=== PATIENT | male | born 1970 | race Caucasian/White ===

== ENCOUNTER 2021-03-25 21:37 | Inpatient (IN) | payer OTHER ==
[~2021-03-25] VITALS: Ht 180.3 cm; Wt 104.2 kg
[2021-03-25] MEDS ORDERED: ONDANSETRON 2MG/ML, 2ML IVPush ONE (22:00)
[2021-03-25] MEDS ORDERED: SODIUM CHLORIDE FLUSH 10ML SYR IVF ONE (22:00)
[2021-03-25 22:05] LABS: BASOPHILS % (AUTO) 1 % (0-1); EOSINOPHILS % (AUTO) 1 % (1-7); LYMPHOCYTES % (AUTO) 20 % (22-44); MEAN CORPUSCULAR HEMOGLOBIN 32.5 pg (27.5-34.5); MEAN CORPUSCULAR HGB CONC 34.3 g/dL (33.2-36.2); MEAN PLATELET VOLUME 9.4 fL (7.4-10.4); MONOCYTES % (AUTO) 13 % (2-9); NEUTROPHILS % (AUTO) 66 % (42-75); PLATELET COUNT 193 x10^3/uL (130-400); RED BLOOD COUNT 3.57 x10^6/uL (4.38-5.82)
--- NOTE | 2021-03-25 22:06 | NUR ---
[facility] FROM HOME. PT HAD RIGHT TOTAL KNEE REPLACEMENT ON SUNDAY AND IS NOW HAVING UNCONTROLLED PAIN, SWELLING, REDNESS, AND FEELING LIGHTHEADED, WEAK AND NAUSEOUS FOR 2 DAYS. TEMP AT HOME WAS 100.9. PT STATES HE CANNOT MOVE RIGHT LEG AND HAS NOT BEEN ABLE TO WEIGHT ON IT. AT BEDSIDE.
[2021-03-25 22:08] LABS: MD NO
[2021-03-25 22:09] LABS: HCT (SEDRATE) 33.9 % (39.2-51.8)
--- NOTE | 2021-03-25 22:10 | NUR ---
PT HAS RON WOUND VAC TO RIGHT FORTE.
[2021-03-25 22:14] LABS: ALANINE AMINOTRANSFERASE 22 U/L (12-78); ALBUMIN 3.2 g/dL (3.4-5.0); ANION GAP 6 mmol/L (5-15); CHLORIDE 103 mmol/L (98-107); CREATININE 1.25 mg/dL (0.7-1.3)
[2021-03-25] MEDS ORDERED: MORPHINE SULFATE 4 MG/ML, 1ML ONE (22:15)
[2021-03-25] MEDS ORDERED: ONDANSETRON 2MG/ML, 2ML ONE (22:15)
[2021-03-25] MEDS: MORPHINE SULFATE 4 MG/ML, 1ML IVPush PRN (22:17)
[2021-03-25 22:21] LABS: ALKALINE PHOSPHATASE 67 U/L (45-117); BILIRUBIN,TOTAL 0.6 mg/dL (0.2-1.0); TOTAL PROTEIN 6.2 g/dL (6.4-8.2)
[2021-03-25 22:25] LABS: MICROSCOPIC NOT IND
[2021-03-25] MEDS ORDERED: VANCOMYCIN PER PHARMACY MC PRN (23:00)
[2021-03-25] MEDS ORDERED: AMPICILLIN/SULBACTAM 3 GM in SODIUM CHLORIDE 0.9% 100 ML IV ONE (23:00)
[2021-03-25] MEDS ORDERED: RIVA10TA2 PO (23:26)
[2021-03-25] MEDS ORDERED: TRAM-47 PO (23:26)
[2021-03-25] MEDS ORDERED: OXYC5CAP2 PO (23:26)
[2021-03-25] MEDS ORDERED: ALLO300T PO (23:26)
--- NOTE | 2021-03-25 23:34 | NUR ---
[facility] AT BEDSIDE
[2021-03-26] MEDS ORDERED: ACETAMINOPHEN 325 MG TABLET PO PRN
[2021-03-26] MEDS ORDERED: PROMETHAZINE 25 MG/ML, 1ML IM PRN
[2021-03-26] MEDS ORDERED: CEFTRIAXONE 2 GM in DEXTROSE 5% 50 ML IVPB SCH
[2021-03-26] MEDS ORDERED: hydrALAzine 20 MG/ML, 1ML IVPush PRN
[2021-03-26] MEDS ORDERED: morphine SULFATE 10 MG/ML, 1ML IVPush PRN
[2021-03-26] MEDS ORDERED: BISACODYL 10 MG SUPP PR PRN
[2021-03-26] MEDS ORDERED: ONDANSETRON ODT 4 MG PO PRN
[2021-03-26] MEDS ORDERED: POLYETHYLENE GLYCOL 17 GM PACKET PO PRN
[2021-03-26] MEDS ORDERED: ONDANSETRON 2MG/ML, 2ML IVPush PRN
[2021-03-26] MEDS ORDERED: VANCOMYCIN 2,500 MG in SODIUM CHLORIDE 0.9% 500 ML IV ONE
--- NOTE | 2021-03-26 00:28 | NUR ---
REPORT GIVEN TO PAOLA WATKINS
[2021-03-26] MEDS ORDERED: MORPHINE SULFATE 4 MG/ML, 1ML ONE (00:29)
[2021-03-26] MEDS ORDERED: ZOLPIDEM 10MG TABLET PO PRN (00:30)
[2021-03-26] MEDS ORDERED: PHARMACOKINETIC MONITORING MC PRN (00:30)
[2021-03-26] MEDS: MORPHINE SULFATE 4 MG/ML, 1ML IVPush PRN (00:31)
[2021-03-26 01:00] VITALS: BP 121/63
[2021-03-26] MEDS: OXYcodone IR 5MG TABLET PO PRN ×4 (01:28→21:15)
[2021-03-26] MEDS: SODIUM CHLORIDE 0.9% 1,000 ML IV SCH ×2 (01:45→10:00)
[2021-03-26 05:07] LABS: BASOPHILS % (AUTO) 1 % (0-1); EOSINOPHILS % (AUTO) 1 % (1-7); LYMPHOCYTES % (AUTO) 24 % (22-44); MEAN CORPUSCULAR HEMOGLOBIN 32.5 pg (27.5-34.5); MEAN CORPUSCULAR HGB CONC 34.2 g/dL (33.2-36.2); MEAN PLATELET VOLUME 9.2 fL (7.4-10.4); MONOCYTES % (AUTO) 12 % (2-9); NEUTROPHILS % (AUTO) 63 % (42-75); PLATELET COUNT 195 x10^3/uL (130-400); RED BLOOD COUNT 3.36 x10^6/uL (4.38-5.82)
[2021-03-26 05:11] LABS: CHLORIDE 106 mmol/L (98-107)
[2021-03-26 05:14] LABS: MD NO
[2021-03-26 05:22] LABS: ALANINE AMINOTRANSFERASE 18 U/L (12-78); ALBUMIN 2.9 g/dL (3.4-5.0); ALKALINE PHOSPHATASE 63 U/L (45-117); ANION GAP 3 mmol/L (5-15); BILIRUBIN,TOTAL 0.7 mg/dL (0.2-1.0); CALCIUM 7.8 mg/dL (8.5-10.1); CHOL/HDL RATIO 3.6; CHOLESTEROL, TOTAL 118 mg/dL (140-239); CREATININE 1.12 mg/dL (0.7-1.3); HDL CHOL % 28 % (26-37); HDL CHOLESTEROL (DIRECT) 33 mg/dL (40-60); LDL CHOLESTEROL,CALCULATED 54 mg/dL (54-169); LDL/HDL RATIO 1.6 (0.5-3.0); TOTAL PROTEIN 5.7 g/dL (6.4-8.2); TRIGLYCERIDES 155 mg/dL (50-200); VLDL CHOLESTEROL 31 mg/dL (0-25)
[2021-03-26 06:24] VITALS: BP 111/68
[2021-03-26] MEDS: KETOROLAC 30 MG/1 ML IVPush SCH ×3 (08:13→18:43)
[2021-03-26] MEDS: RIVAROXABAN 10 MG TABLET PO SCH (08:13)
[2021-03-26] MEDS: SENNA/DOCUSATE TABLET PO SCH (08:13)
[2021-03-26] MEDS: ALLOPURINOL 300 MG TABLET PO SCH (08:14)
[2021-03-26] MEDS ORDERED: VANCOMYCIN PER PHARMACY MC PRN ×2 (11:00)
[2021-03-26] MEDS ORDERED: OXYcodone IR 5MG TABLET PO PRN (11:00)
[2021-03-26] MEDS: AMPICILLIN/SULBACTAM 3 GM in SODIUM CHLORIDE 0.9% 100 ML IV SCH ×3 (12:30→23:29)
[2021-03-26] MEDS: VANCOMYCIN 1,700 MG in SODIUM CHLORIDE 0.9% 250 ML IV SCH (14:00)
[2021-03-26] MEDS ORDERED: METOCLOPRAMIDE 5 MG/ML, 2ML IVPush PRN (14:00)
[2021-03-26] MEDS ORDERED: VANCOMYCIN 2,000 MG in SODIUM CHLORIDE 0.9% 500 ML IV SCH (15:00)
[2021-03-26 15:23] VITALS: BP 109/59
[2021-03-26] MEDS: POLYETHYLENE GLYCOL 17 GM PACKET PO SCH (16:19)
[2021-03-26 18:39] VITALS: BP 116/72
[2021-03-27 00:35] VITALS: BP 109/58
[2021-03-27] MEDS: KETOROLAC 30 MG/1 ML IVPush SCH ×4 (01:25→20:16)
[2021-03-27] MEDS: VANCOMYCIN 1,700 MG in SODIUM CHLORIDE 0.9% 250 ML IV SCH ×2 (02:18→14:41)
[2021-03-27] MEDS: POLYETHYLENE GLYCOL 17 GM PACKET PO SCH ×4 (04:20→20:19)
[2021-03-27] MEDS: AMPICILLIN/SULBACTAM 3 GM in SODIUM CHLORIDE 0.9% 100 ML IV SCH ×3 (05:07→18:03)
[2021-03-27 06:53] VITALS: BP 104/69
[2021-03-27] MEDS: OXYcodone IR 5MG TABLET PO PRN (07:02)
[2021-03-27 08:20] LABS: HCT (SEDRATE) 28.6 % (39.2-51.8)
[2021-03-27] MEDS: RIVAROXABAN 10 MG TABLET PO SCH (09:42)
[2021-03-27] MEDS: ALLOPURINOL 300 MG TABLET PO SCH (09:42)
[2021-03-27] MEDS: SENNA/DOCUSATE TABLET PO SCH (09:42)
[2021-03-27 12:45] VITALS: BP 120/79
[2021-03-27] MEDS: ACETAMINOPHEN 325 MG TABLET PO SCH ×2 (13:54→20:16)
[2021-03-27 18:48] VITALS: BP 107/63
[2021-03-28] MEDS: AMPICILLIN/SULBACTAM 3 GM in SODIUM CHLORIDE 0.9% 100 ML IV SCH (00:30)
[2021-03-28] MEDS: VANCOMYCIN 1,700 MG in SODIUM CHLORIDE 0.9% 250 ML IV SCH (02:48)
[2021-03-28] MEDS: ACETAMINOPHEN 325 MG TABLET PO SCH ×2 (02:48→08:56)
[2021-03-28] MEDS: KETOROLAC 30 MG/1 ML IVPush SCH ×2 (02:48→08:56)
[2021-03-28 02:55] VITALS: BP 114/73
[2021-03-28 07:59] VITALS: BP 112/69
[2021-03-28] MEDS ORDERED: SENN-211 PO (08:53)
[2021-03-28] MEDS ORDERED: ACET325T26 PO (08:53)
[2021-03-28] MEDS: ALLOPURINOL 300 MG TABLET PO SCH (08:56)
[2021-03-28] MEDS: RIVAROXABAN 10 MG TABLET PO SCH (08:56)
[2021-03-28] MEDS: POLYETHYLENE GLYCOL 17 GM PACKET PO SCH (08:57)
[2021-03-28] MEDS: SENNA/DOCUSATE TABLET PO SCH (08:57)
== END 2021-03-28 09:53 | disposition home or self-care (01) | DRG 566 ==
LOC: ED 22:31 → EDIP 23:32 → 4NE 03-26 01:00 → DCLOUNGE 03-28 09:49
PROVIDERS: ADMIT Internal Medicine; ATTEND Internal Medicine
DX: M25.461 Effusion, right knee (principal); E66.9 Obesity, unspecified; G89.18 Other acute postprocedural pain; Z68.32 Body mass index [BMI] 32.0-32.9, adult; K59.00 Constipation, unspecified; M17.0 Bilateral primary osteoarthritis of knee; M1A.9XX0 Chronic gout, unspecified, without tophus (tophi); Z79.01 Long term (current) use of anticoagulants; Z86.718 Personal history of other venous thrombosis and embolism; Z96.651 Presence of right artificial knee joint; Y83.1 Surgical operation with implant of artificial internal device as the cause of abnormal reaction of the patient, or of later complication, without mention of misadventure at the time of the procedure; Y92.89 Other specified places as the place of occurrence of the external cause
CPT/HCPCS: 36415; 74018; 80053; 80061; 80202; 81003; 83036; 83605; 83735; 84100; 84145; 84443; 84550; 85025; 85651; 86140; 87040; 96365; 96375; G0378; J0295; J0696; J1885; J2405; J3370; J2270; J7030; J7040; J7050